=== PATIENT | female | born 1960 | race Caucasian/White ===

== ENCOUNTER 2018-10-14 13:58 | Emergency (ER) | payer BC ==
[~2018-10-14] VITALS: Ht 152.4 cm; Wt 77.1 kg
[2018-10-14 14:00] VITALS: BP_SYST 160
--- NOTE | 2018-10-14 14:00 | NUR ---
Placed in room 05 . Placed on color television console monitor, blood pressure machine and pulse oximeter. To gown for exam. Side rails up.
--- NOTE | 2018-10-14 14:05 | NUR ---
Pt brought by family member, A&Ox4, pt presents to ER with L arm pain 03/18 since today, denies chest pain, VS WNL, respirations even and unlabored, ambulatory , speaking in full sentences.
--- NOTE | 2018-10-14 14:10 | NUR ---
Dr Riley at bedside examining patient
[2018-10-14] MEDS ORDERED: ASPIRIN 81 MG TAB.CHEW PO ONE (14:15)
--- NOTE | 2018-10-14 14:33 | NUR ---
REPORT RECEIVED, PT LAYING IN BED, DTR AT BEDSIDE. PT COMES TO ER WITH C/O LEFT ARM NUMBNESS/PAIN, NON RADIATING ONGOING FOR COUPLE OF DAYS. DENIES ANY CP OR SOB. PT STATES SHE'S BEEN FEELING DIZZY WELL. REPORTS HER PCP TOOK HER OFF HER BP MEDS 3 WEEKS AGO BECAUSE OF HYPOTENSION.
[2018-10-14 14:36] LABS: BASOPHILS # (AUTO) 0.1 K/uL (0.0-0.2); BASOPHILS % (AUTO) 1.1 % (0.0-2.0); EOSINOPHILS % (AUTO) 0.8 % (0.0-4.0); HEMATOCRIT 44.9 % (36-48); HEMOGLOBIN 14.6 g/dL (12.0-16.0); LYMPHOCYTES # (AUTO) 1.8 K/uL (1.0-5.5); LYMPHOCYTES % (AUTO) 33.6 % (20.5-51.5); MEAN CORPUSCULAR HEMOGLOBIN 29 pg (27-31); MEAN CORPUSCULAR HGB CONC 33 % (32-36); MEAN CORPUSCULAR VOLUME 88 fL (79.0-98.0); MONOCYTES # (AUTO) 0.5 K/uL (0.0-1.0); MONOCYTES % (AUTO) 9.4 % (1.7-9.3); NEUTROPHILS # (AUTO) 2.9 K/uL (1.8-7.7); NEUTROPHILS % (AUTO) 55.1 % (40.0-70.0); PLATELET COUNT (AUTO) 255 K/uL (130-430); RED BLOOD CELL COUNT(AUTO) 5.13 MIL/uL (4.2-6.2); RED CELL DISTRIBUTION WIDTH 12.3 % (9.0-15.0); WHITE BLOOD COUNT (AUTO) 5.3 K/uL (4.8-10.8)
[2018-10-14 14:56] LABS: INR 1.1 (0.8-1.2); PROTHROMBIN TIME 10.8 SECS (9.5-12.5)
[2018-10-14 15:00] LABS: CALCIUM 9.4 mg/dL (8.4-11.0); CREATININE 0.76 mg/dL (0.55-1.30); POTASSIUM 3.7 mmol/L (3.5-5.1)
[2018-10-14 15:02] LABS: TOTAL BILIRUBIN 0.9 mg/dL (0.0-1.0)
--- NOTE | 2018-10-14 16:33 | NUR ---
Patient given written and verbal discharge instructions and verbalizes understanding. ER MD discussed with patient the results and treatment provided. Patient in stable condition. ID arm band removed. Rx of ANTIVERT given. Patient educated on pain management and to follow up with PMD. Pain Scale . Opportunity for questions provided and answered. Medication side effect fact sheet provided.
[2018-10-14 16:34] VITALS: BP_SYST 133
== END 2018-10-14 16:33 | disposition home or self-care (01) ==
LOC: SED 13:58
DX: S46.912A Strain of unspecified muscle, fascia and tendon at shoulder and upper arm level, left arm, initial encounter (principal); R42 Dizziness and giddiness; E78.00 Pure hypercholesterolemia, unspecified; I10 Essential (primary) hypertension; F17.200 Nicotine dependence, unspecified, uncomplicated; X58.XXXA Exposure to other specified factors, initial encounter; Y93.89 Activity, other specified; Y92.89 Other specified places as the place of occurrence of the external cause; Y99.8 Other external cause status
CPT/HCPCS: 36415; 71045; 80053; 82550-TC; 84484; 85025; 85610-TC; 85730-TC; 93005; 99284